=== PATIENT | male | born 1945 | race Caucasian/White ===

== ENCOUNTER 2020-09-01 12:24 | Inpatient (IN) ==
[2020-09-01] MEDS: 0.9 % Sodium Chloride 1,000 ML IVC ONE ×2 (12:58→20:05)
[2020-09-01 13:04] LABS: Basophils # 0.1 K/mcL (0.0-0.2); Basophils % 0.2 %; Hematocrit 46.9 % (37.5-50.1); Hemoglobin 15.4 g/dL (12.9-16.9); Immature Granulocytes % 0.8 % (0-4); Lymphocytes # 0.9 K/mcL (0.6-4.6); Mean Corpuscular HGB Conc 32.8 g/dL (31.6-35.5); Mean Corpuscular Hemoglobin 31.6 pg (28.0-33.3); Mean Corpuscular Volume 96.1 fL (83.0-100.0); Mean Platelet Volume 10.4 fL (9.4-12.4); Monocytes % 7.1 %; Neutrophils # 25.3 K/mcL (1.6-8.9); Platelet Count 170 K/mcL (140-400); Red Blood Count 4.88 M/mcL (4.19-5.50); Red Cell Distribution Width 13.6 % (11.5-14.5); Segmented Neutrophils % 88.9 %; White Blood Count 28.5 K/mcL (4.3-11.1)
[2020-09-01 13:19] LABS: Platelet Estimate Normal (Normal)
[2020-09-01 13:20] LABS: BUN/Creatinine Ratio 24 (6-26); Blood Urea Nitrogen 20 mg/dL (8-23); Calcium 8.6 mg/dL (8.6-10.3); Carbon Dioxide 29 mEq/L (23-29); Chloride 101 mEq/L (98-107); Glucose 119 mg/dL (70-105); Osmolality,Calculated 286 (280-300); Potassium 4.5 mEq/L (3.5-5.1); Sodium 136 mEq/L (136-145); eGFR For African Americans > 60 (> 60); eGFR For Non-African Americans > 60 (> 60)
[2020-09-01 13:39] LABS: Bilirubin,Urine Small (Negative); Blood,Urine Moderate (Negative); Clarity,Urine Cloudy (Clear); Glucose,Urine (UA) Normal (Normal); Ketones,Urine Trace mg/dL (Negative); Leukocyte Esterase,Urine Small (Negative); Nitrite,Urine Positive (Negative); Protein,Urine 100 mg/dL (Neg-Trace); Specific Gravity,Urine >= 1.030 (1.010-1.025); Urobilinogen,Urine Normal (Normal)
[2020-09-01 13:45] LABS: Color,Urine Dark-Yellow (Yellow)
[2020-09-01 13:47] LABS: Bacteria,Urine Many per hpf (None-Few); RBC,Urine TNTC per hpf (0-3); Squamous Epithelial Cell,Urine Few per hpf (None-Few)
[2020-09-01] MEDS ORDERED: cefTRIAXone 2,000 MG in 0.9 % Sodium Chloride Mini Bag 100 ML IVPB ONE (14:00)
[2020-09-01] MEDS ORDERED: Naloxone 0.4 MG/ML INJ IVP PRN (16:25)
[2020-09-01] MEDS ORDERED: Mag Hydrox/Al Hydrox/Simeth 30 ML UDC PO PRN (16:25)
[2020-09-01] MEDS ORDERED: MOM Conc 10 ML UD.LIQ PO PRN (16:25)
[2020-09-01] MEDS ORDERED: Ondansetron 4 MG/2 ML VIAL IVP PRN (16:25)
[2020-09-01] MEDS ORDERED: Albuterol 2.5 MG/3 ML NEBULIZER IH PRN (16:52)
[2020-09-01] MEDS: Acetaminophen 325 MG TABLET PO PRN (17:45)
[2020-09-01] MEDS: [UNRECOGNIZED DRUG - OTHER] PO SCH (17:47)
[2020-09-01] MEDS: 0.9 % Sodium Chloride 1,000 ML IVC SCH ×2 (17:47→20:41)
[2020-09-01] MEDS: tiZANidine 4 MG TABLET PO PRN (17:53)
[2020-09-01] MEDS: diazePAM 5 MG TABLET PO PRN (17:53)
[2020-09-01] MEDS ORDERED: 0.9 % Sodium Chloride 500 ML IVC ONE (18:12)
[2020-09-01] MEDS: Gabapentin 300 MG CAPSULE PO SCH (20:12)
[2020-09-01] MEDS: Budesonide/Formoterol 80/4.5 1 PUFF INH IH SCH (21:11)
[2020-09-02] MEDS: Acetaminophen 325 MG TABLET PO PRN (00:07)
[2020-09-02] MEDS: tiZANidine 4 MG TABLET PO PRN (04:48)
[2020-09-02 07:06] LABS: Basophils # 0.1 K/mcL (0.0-0.2); Basophils % 0.2 %; Eosinophils % 0.1 %; Hematocrit 41.8 % (37.5-50.1); Hemoglobin 13.7 g/dL (12.9-16.9); Immature Granulocytes % 1.2 % (0-4); Lymphocytes # 1.3 K/mcL (0.6-4.6); Lymphocytes % 5.1 %; Mean Corpuscular HGB Conc 32.8 g/dL (31.6-35.5); Mean Corpuscular Volume 97.7 fL (83.0-100.0); Mean Platelet Volume 10.7 fL (9.4-12.4); Monocytes # 1.5 K/mcL (0.0-1.3); Monocytes % 5.9 %; Platelet Count 143 K/mcL (140-400); Red Blood Count 4.28 M/mcL (4.19-5.50); Red Cell Distribution Width 13.8 % (11.5-14.5); Segmented Neutrophils % 87.5 %; White Blood Count 25.1 K/mcL (4.3-11.1)
[2020-09-02 07:14] LABS: BUN/Creatinine Ratio 21 (6-26); Blood Urea Nitrogen 16 mg/dL (8-23); Calcium 7.9 mg/dL (8.6-10.3); Carbon Dioxide 29 mEq/L (23-29); Chloride 105 mEq/L (98-107); Glucose 102 mg/dL (70-105); Osmolality,Calculated 287 (280-300); Sodium 138 mEq/L (136-145); eGFR For African Americans > 60 (> 60); eGFR For Non-African Americans > 60 (> 60)
[2020-09-02 07:52] LABS: Platelet Estimate Normal (Normal)
[2020-09-02] MEDS: AMPHETAMINE SALTS 20 MG PO SCH (09:18)
[2020-09-02] MEDS: amLODIPine 5 MG TABLET PO SCH (09:30)
[2020-09-02] MEDS: Aspirin Enteric Coated 81 MG Tablet PO SCH (09:30)
[2020-09-02] MEDS: Gabapentin 300 MG CAPSULE PO SCH ×3 (09:30→19:47)
[2020-09-02] MEDS: Budesonide/Formoterol 80/4.5 1 PUFF INH IH SCH ×2 (10:26→21:15)
[2020-09-02] MEDS ORDERED: cefTRIAXone 2,000 MG in 0.9 % Sodium Chloride Mini Bag 100 ML IVPB SCH ×2 (14:00→17:00)
[2020-09-02] MEDS: diazePAM 5 MG TABLET PO PRN (17:32)
[2020-09-02] MEDS: [UNRECOGNIZED DRUG - OTHER] PO SCH (17:44)
[2020-09-03 08:29] VITALS: BP 151/80
[2020-09-03] MEDS: Aspirin Enteric Coated 81 MG Tablet PO SCH (08:29)
[2020-09-03] MEDS: Gabapentin 300 MG CAPSULE PO SCH (08:29)
[2020-09-03] MEDS: amLODIPine 5 MG TABLET PO SCH (08:29)
[2020-09-03] MEDS: AMPHETAMINE SALTS 20 MG PO SCH (08:32)
[2020-09-03 08:50] LABS: Hematocrit 40.9 % (37.5-50.1); Hemoglobin 13.7 g/dL (12.9-16.9); Mean Corpuscular HGB Conc 33.5 g/dL (31.6-35.5); Mean Corpuscular Hemoglobin 32.2 pg (28.0-33.3); Mean Platelet Volume 10.3 fL (9.4-12.4); Platelet Count 163 K/mcL (140-400); Red Blood Count 4.26 M/mcL (4.19-5.50); Red Cell Distribution Width 13.3 % (11.5-14.5); White Blood Count 17.7 K/mcL (4.3-11.1)
[2020-09-03 09:06] LABS: BUN/Creatinine Ratio 21 (6-26); Blood Urea Nitrogen 13 mg/dL (8-23); Calcium 7.9 mg/dL (8.6-10.3); Carbon Dioxide 30 mEq/L (23-29); Chloride 105 mEq/L (98-107); Glucose 92 mg/dL (70-105); Osmolality,Calculated 290 (280-300); Potassium 3.8 mEq/L (3.5-5.1); Sodium 140 mEq/L (136-145); eGFR For African Americans > 60 (> 60); eGFR For Non-African Americans > 60 (> 60)
[2020-09-03] MEDS: Budesonide/Formoterol 80/4.5 1 PUFF INH IH SCH (10:33)
== END 2020-09-03 12:22 | disposition home or self-care (01) | DRG 872 ==
LOC: INPPIK 12:24 → EMEROOPIK 12:24 → INPPIK 15:20
PROVIDERS: ADMIT Family Medicine; ATTEND Family Medicine

== ENCOUNTER 2021-09-29 06:41 | Inpatient (IN) ==
[2021-09-29] MEDS ORDERED: 0.9 % Sodium Chloride 1,000 ML IVC ONE ×2 (07:01→07:54)
[2021-09-29] MEDS ORDERED: Ipratropium/Albuterol Neb 3 ML IH ONE ×2 (07:01→16:42)
[2021-09-29] MEDS ORDERED: cefTRIAXone 2,000 MG in Water for inj. (sterile) 10 ML IVP ONE (07:01)
[2021-09-29] MEDS ORDERED: methylPREDNISolone 125 MG/2 ML VIAL IVP ONE (07:01)
[2021-09-29] MEDS ORDERED: Azithromycin 500 MG in 0.9 % Sodium Chloride 250 ML IVPB ONE (07:01)
[2021-09-29 07:35] LABS: Basophils # 0.1 K/mcL (0.0-0.2); Basophils % 0.2 %; Hemoglobin 15.3 g/dL (12.9-16.9); Immature Granulocytes % 0.8 % (0-4); Lymphocytes # 0.9 K/mcL (0.6-4.6); Lymphocytes % 3.6 %; Mean Corpuscular HGB Conc 32.6 g/dL (31.6-35.5); Mean Corpuscular Hemoglobin 31.1 pg (28.0-33.3); Mean Corpuscular Volume 95.5 fL (83.0-100.0); Mean Platelet Volume 9.7 fL (9.4-12.4); Monocytes # 1.9 K/mcL (0.0-1.3); Monocytes % 7.4 %; Neutrophils # 22.4 K/mcL (1.6-8.9); Platelet Count 272 K/mcL (140-400); Red Blood Count 4.92 M/mcL (4.19-5.50); Red Cell Distribution Width 14.2 % (11.5-14.5); White Blood Count 25.5 K/mcL (4.3-11.1)
[2021-09-29 07:38] LABS: ABG Base Excess 3 mEq/L (-2 to 3); ABG HCO3 29 mEq/L (21-27); ABG Oxygen Saturation 95 % (95-98); ABG PCO2 49 mmHg (35-45); ABG PH 7.39 pH Units (7.32-7.45); ABG PO2 75 mmHg (85-104); ABG TCO2 31 mEq/L (20-26)
[2021-09-29 07:44] LABS: INR 1.2; Prothrombin Time 12.9 Seconds (9.4-12.1)
[2021-09-29 07:47] LABS: Activated Partial Thrombo Time 30.2 Seconds (26.0-36.0)
[2021-09-29 07:52] LABS: Alanine Aminotransferase 24 Units/L (7-52); Albumin 3.7 g/dL (3.5-5.7); Albumin/Globulin Ratio 1.1 (1.1-2.2); Alkaline Phosphatase 71 Units/L (34-104); Aspartate Amino Transferase 19 Units/L (13-39); BUN/Creatinine Ratio 25 (6-26); Bilirubin,Direct 0.2 mg/dL (0.0-0.2); Bilirubin,Indirect 0.6 mg/dL (0.0-1.0); Bilirubin,Total 0.8 mg/dL (0.3-1.0); Blood Urea Nitrogen 20 mg/dL (8-23); Calcium 9.2 mg/dL (8.6-10.3); Carbon Dioxide 31 mEq/L (23-29); Chloride 99 mEq/L (98-107); Globulin 3.5 g/dL (2.4-3.5); Glucose 89 mg/dL (70-105); Osmolality,Calculated 286 (280-300); Potassium 4.1 mEq/L (3.5-5.1); Sodium 137 mEq/L (136-145); Total Protein 7.2 g/dL (6.4-8.9); eGFR For African Americans > 60 (> 60); eGFR For Non-African Americans > 60 (> 60)
[2021-09-29 07:56] LABS: Troponin I < 0.03 ng/mL (< 0.04)
[2021-09-29 08:14] LABS: Platelet Estimate Normal (Normal)
[2021-09-29] MEDS: 0.9 % Sodium Chloride 1,000 ML IVC SCH ×2 (10:58→18:47)
[2021-09-29] MEDS ORDERED: Nicotine 21 MG PATCH.TD24 TD SCH (12:45)
[2021-09-29 13:53] LABS: Bilirubin,Urine Negative (Negative); Blood,Urine Negative (Negative); Clarity,Urine Clear (Clear); Color,Urine Yellow (Yellow); Glucose,Urine (UA) Normal (Normal); Ketones,Urine Negative (Negative); Leukocyte Esterase,Urine Negative (Negative); Nitrite,Urine Negative (Negative); Protein,Urine Negative (Neg-Trace); Urobilinogen,Urine Normal (Normal)
[2021-09-29] MEDS ORDERED: tiZANidine 4 MG TABLET PO PRN (14:00)
[2021-09-29] MEDS ORDERED: diazePAM 5 MG TABLET PO PRN (14:00)
[2021-09-29] MEDS ORDERED: NON-FORMULARY MEDICATION 1 EACH EACH (Dextroamphetamine/Amphetamine [Adderall 20 Mg Tablet PO SCH (18:00)
[2021-09-29] MEDS: Piperacillin/Tazobactam 3.375 GM in 0.9 % Sodium Chloride Mini Bag 100 ML IVPB SCH (18:54)
[2021-09-29] MEDS: Gabapentin 300 MG CAPSULE PO SCH ×2 (19:37→19:54)
[2021-09-29] MEDS: Nicotine 21 MG PATCH.TD24 TD SCH (19:54)
[2021-09-29] MEDS: Budesonide/Formoterol 160/4.5 1 PUFF INH IH SCH (20:32)
[2021-09-29] MEDS ORDERED: [UNRECOGNIZED DRUG - OTHER] IH SCH (21:00)
[2021-09-29] MEDS ORDERED: SALMETEROL IH SCH (21:00)
[2021-09-29] MEDS ORDERED: FLUTICASONE IH SCH (21:00)
[2021-09-30] MEDS: Piperacillin/Tazobactam 3.375 GM in 0.9 % Sodium Chloride Mini Bag 100 ML IVPB SCH ×3 (05:45→23:55)
[2021-09-30] MEDS: *HR* Enoxaparin 40 MG/0.4 ML SYRINGE SQ SCH (05:48)
[2021-09-30 07:30] LABS: Basophils # 0.1 K/mcL (0.0-0.2); Basophils % 0.2 %; Eosinophils % 2.5 %; Hematocrit 41.8 % (37.5-50.1); Hemoglobin 13.3 g/dL (12.9-16.9); Immature Granulocytes % 0.6 % (0-4); Mean Corpuscular HGB Conc 31.8 g/dL (31.6-35.5); Mean Corpuscular Hemoglobin 30.9 pg (28.0-33.3); Mean Platelet Volume 9.8 fL (9.4-12.4); Monocytes # 1.8 K/mcL (0.0-1.3); Monocytes % 5.3 %; Neutrophils # 29.7 K/mcL (1.6-8.9); Platelet Count 248 K/mcL (140-400); Red Blood Count 4.31 M/mcL (4.19-5.50); Segmented Neutrophils % 88.4 %
[2021-09-30 07:32] LABS: Eosinophils # 0.8 K/mcL (0.0-0.6); White Blood Count 33.6 K/mcL (4.3-11.1)
[2021-09-30 07:38] LABS: BUN/Creatinine Ratio 30 (6-26); Blood Urea Nitrogen 20 mg/dL (8-23); Calcium 8.7 mg/dL (8.6-10.3); Carbon Dioxide 31 mEq/L (23-29); Chloride 105 mEq/L (98-107); Glucose 109 mg/dL (70-105); Osmolality,Calculated 297 (280-300); Potassium 4.2 mEq/L (3.5-5.1); Sodium 142 mEq/L (136-145); eGFR For African Americans > 60 (> 60); eGFR For Non-African Americans > 60 (> 60)
[2021-09-30 08:04] LABS: Platelet Estimate Normal (Normal)
[2021-09-30] MEDS: Gabapentin 300 MG CAPSULE PO SCH ×3 (08:07→21:12)
[2021-09-30] MEDS: amLODIPine 5 MG TABLET PO SCH (08:07)
[2021-09-30] MEDS: Aspirin Enteric Coated 81 MG Tablet PO SCH (08:07)
[2021-09-30] MEDS ORDERED: NON-FORMULARY MEDICATION 1 EACH EACH (Dextroamphetamine/Amphetamine [Adderall 20 Mg Tablet PO SCH (09:00)
[2021-09-30] MEDS ORDERED: MethylPREDNISolone 40 MG/ML VIAL IVP SCH (09:00)
[2021-09-30 10:04] LABS: Adenovirus Not Detected (Not Detect); Bordetella Pertussis Not Detected (Not Detect); Chlamydophila pneumoniae Not Detected (Not Detect); Coronavirus 229E Not Detected (Not Detect); Coronavirus HKU1 Not Detected (Not Detect); Coronavirus NL63 Not Detected (Not Detect); Coronavirus OC43 Not Detected (Not Detect); Human Metapneumovirus Not Detected (Not Detect); Human Rhinovirus/Enterovirus Not Detected (Not Detect); Influenza A Subtype 2009 H1 Not Detected (Not Detect); Influenza B Not Detected (Not Detect); Mycoplasma pneumoniae Not Detected (Not Detect); Parainfluenza Virus 1 Not Detected (Not Detect); Parainfluenza Virus 2 Not Detected (Not Detect); Parainfluenza Virus 3 Not Detected (Not Detect); Parainfluenza Virus 4 Not Detected (Not Detect); Respiratory Syncytial Virus Not Detected (Not Detect); SARS-CoV-2 Not Detected (Not Detect)
[2021-09-30] MEDS: 0.9 % Sodium Chloride 1,000 ML IVC SCH ×2 (10:05→23:47)
[2021-09-30] MEDS ORDERED: Ipratropium 1 PUFF INHALER IH PRN (10:37)
[2021-09-30] MEDS: Budesonide/Formoterol 160/4.5 1 PUFF INH IH SCH ×2 (11:02→20:34)
[2021-09-30] MEDS: Ipratropium/Albuterol Neb 3 ML IH SCH ×3 (11:02→20:33)
[2021-09-30 11:12] LABS: Basophils # 0.1 K/mcL (0.0-0.2); Basophils % 0.2 %; Hematocrit 42.1 % (37.5-50.1); Hemoglobin 13.5 g/dL (12.9-16.9); Immature Granulocytes % 0.7 % (0-4); Lymphocytes # 0.5 K/mcL (0.6-4.6); Lymphocytes % 1.4 %; Mean Corpuscular HGB Conc 32.1 g/dL (31.6-35.5); Mean Corpuscular Hemoglobin 30.8 pg (28.0-33.3); Mean Corpuscular Volume 96.1 fL (83.0-100.0); Mean Platelet Volume 9.6 fL (9.4-12.4); Monocytes # 1.1 K/mcL (0.0-1.3); Monocytes % 3.3 %; Neutrophils # 31.1 K/mcL (1.6-8.9); Platelet Count 264 K/mcL (140-400); Red Blood Count 4.38 M/mcL (4.19-5.50); Segmented Neutrophils % 94.4 %
[2021-09-30 11:21] LABS: White Blood Count 32.9 K/mcL (4.3-11.1)
[2021-09-30 12:48] LABS: Platelet Estimate Normal (Normal)
[2021-09-30] MEDS: MethylPREDNISolone 40 MG/ML VIAL IVP SCH ×2 (13:15→18:13)
[2021-09-30] MEDS: Benzonatate 100 MG CAPSULE PO PRN ×2 (16:40→21:12)
[2021-09-30] MEDS: Nicotine 21 MG PATCH.TD24 TD SCH (21:10)
[2021-10-01] MEDS: MethylPREDNISolone 40 MG/ML VIAL IVP SCH ×3 (00:03→13:47)
[2021-10-01] MEDS: Ipratropium/Albuterol Neb 3 ML IH SCH ×2 (03:02→10:02)
[2021-10-01] MEDS: *HR* Enoxaparin 40 MG/0.4 ML SYRINGE SQ SCH (06:02)
[2021-10-01 07:51] LABS: Basophils % 0.1 %; Hemoglobin 13.1 g/dL (12.9-16.9); Immature Granulocytes % 1.1 % (0-4); Lymphocytes # 0.4 K/mcL (0.6-4.6); Lymphocytes % 1.4 %; Mean Corpuscular Hemoglobin 30.8 pg (28.0-33.3); Mean Corpuscular Volume 96.5 fL (83.0-100.0); Mean Platelet Volume 9.7 fL (9.4-12.4); Monocytes # 0.8 K/mcL (0.0-1.3); Monocytes % 2.5 %; Neutrophils # 29.7 K/mcL (1.6-8.9); Platelet Count 274 K/mcL (140-400); Red Blood Count 4.25 M/mcL (4.19-5.50); Red Cell Distribution Width 13.9 % (11.5-14.5); Segmented Neutrophils % 94.9 %
[2021-10-01 07:58] VITALS: BP 188/99; PULSE 78; TEMP 97.5
[2021-10-01 08:12] LABS: White Blood Count 31.3 K/mcL (4.3-11.1)
[2021-10-01 08:16] LABS: BUN/Creatinine Ratio 39 (6-26); Blood Urea Nitrogen 23 mg/dL (8-23); Calcium 8.6 mg/dL (8.6-10.3); Carbon Dioxide 27 mEq/L (23-29); Chloride 108 mEq/L (98-107); Glucose 144 mg/dL (70-105); Osmolality,Calculated 302 (280-300); Sodium 143 mEq/L (136-145); eGFR For African Americans > 60 (> 60); eGFR For Non-African Americans > 60 (> 60)
[2021-10-01 08:43] LABS: Toxic Vacuolation Present (Not Present)
[2021-10-01 08:44] LABS: Platelet Estimate Normal (Normal)
[2021-10-01] MEDS: 0.9 % Sodium Chloride 1,000 ML IVC SCH (08:56)
[2021-10-01] MEDS: Piperacillin/Tazobactam 3.375 GM in 0.9 % Sodium Chloride Mini Bag 100 ML IVPB SCH (08:57)
[2021-10-01] MEDS: Gabapentin 300 MG CAPSULE PO SCH ×2 (08:58→13:47)
[2021-10-01] MEDS: Aspirin Enteric Coated 81 MG Tablet PO SCH (08:58)
[2021-10-01] MEDS: amLODIPine 5 MG TABLET PO SCH (08:58)
[2021-10-01 09:02] LABS: ABG Base Excess 1 mEq/L (-2 to 3); ABG HCO3 27 mEq/L (21-27); ABG Oxygen Saturation 88 % (95-98); ABG PCO2 46 mmHg (35-45); ABG PH 7.37 pH Units (7.32-7.45); ABG PO2 57 mmHg (85-104); ABG TCO2 28 mEq/L (20-26)
[2021-10-01] MEDS ORDERED: Azithromycin 500 MG in 0.9 % Sodium Chloride 250 ML IVPB SCH (10:00)
[2021-10-01] MEDS: Budesonide/Formoterol 160/4.5 1 PUFF INH IH SCH (10:02)
[2021-10-01 14:33] VITALS: RESP 22; O2SAT 92
== END 2021-10-01 15:06 | disposition other institution (70) | DRG 189 ==
LOC: INPPIK 06:41 → EMEROOPIK 06:41 → INPPIK 18:30
PROVIDERS: ADMIT Internal Medicine; ATTEND Internal Medicine